=== PATIENT | male | born 1975 | race Caucasian/White ===

== ENCOUNTER 2017-07-07 15:57 | Emergency (ER) | payer OTHER ==
[~2017-07-07 15:57] MED LIST: ARIP1TAB5 PO; LISD70 PO; NAPR500 PO; SERT100 PO; TRAZ50TA4 PO; WELL150T PO
[2017-07-07 15:59] VITALS: BP 143/84; PULSE 80; RESP 16; TEMP 98.8; O2SAT 98
[2017-07-07] MEDS ORDERED: BUPR150CR PO (16:14)
[2017-07-07] MEDS ORDERED: TRAZ50TA12 PO (16:14)
[2017-07-07] MEDS ORDERED: ATOR10TA15 PO (16:14)
[2017-07-07] MEDS ORDERED: LISD70 PO (16:14)
--- NOTE | 2017-07-07 16:25 | PD ---
HPI Chief Complaint: Fall Time Seen by Provider: 16:05 Travel History International Travel<30 days: Yes Contact w/Intl Traveler<30days: Yes Name of Country Traveled to: [place] Traveled to known affect area: No History of Present Illness HPI Patient is a 42-year-old male who presents to emergency room with complaints of headache, neck pain and low back pain. Patient reports that prior to arrival to the emergency room, he was standing on a chair. Patient reports that he fell off the chair and landed on his back, reports that he does not think that he hit his head after the fall but does complain of pain to the back of his head. Reports that his neck is sore, reports that his low back is sore. Reports "I don't think anything is broken but I just wanted to make sure." He currently is not taking any anticoagulants. Patient was able to ambulate after fall. Reports that he did take a left over muscle relaxer he had at home as he does have history of discectomy in the past PFSH Past Medical History ADHD: Yes Anxiety: Yes Depression: Yes Past Surgical History Narrative Surgical History of a discectomy Social History Alcohol Use: Yes (socially) Tobacco Use: No Substance Use: No Allergies-Medications (Allergen,Severity, Reaction): Coded Allergies: erythromycin base (Verified Allergy, Severe, hives, 07/07/17) Reported Meds & Prescriptions Reported Meds & Active Scripts Active Reported Atorvastatin (Atorvastatin Calcium) 10 Mg Tab 10 Mg PO HS Trazodone (Trazodone HCl) 50 Mg Tab 50 Mg PO HS Vyvanse (Lisdexamfetamine Dimesylate) 70 Mg Cap 70 Mg PO DAILY Wellbutrin SR 12 HR (Bupropion HCl) 150 Mg Tab 150 Mg PO Q12HR Review of Systems General / Constitutional: No: Fever Eyes: No: Visual changes HENT: Positive: Headaches, Neck Pain Cardiovascular: No: Chest Pain or Discomfort Respiratory: No: Shortness of Breath Gastrointestinal: No: Abdominal Pain Genitourinary: No: Dysuria Musculoskeletal: Positive: Pain (low back pain) Skin: No Rash Neurologic: No: Weakness Psychiatric: No: Depression Endocrine: No: Polydipsia Hematologic/Lymphatic: No: Easy Bruising Physical Exam Narrative GENERAL: Mild distress SKIN: Focused skin assessment warm/dry. HEAD: Atraumatic. Normocephalic. EYES: Pupils equal and round. No scleral icterus. No injection or drainage. ENT: No nasal bleeding or discharge. Mucous membranes pink and moist. NECK: Trachea midline. No JVD. There is no midline tenderness, patient with right sided paraspinal tenderness CARDIOVASCULAR: Regular rate and rhythm. No murmur appreciated. RESPIRATORY: No accessory muscle use. Clear to auscultation. Breath sounds equal bilaterally. GASTROINTESTINAL: Abdomen soft, non-tender, nondistended. Hepatic and splenic margins not palpable. MUSCULOSKELETAL: No obvious deformities. No clubbing. No cyanosis. No edema. Patient with lumbar paraspinal tenderness, no saddle anesthesia, patient ambulating in the emergency with normal gait. NEUROLOGICAL: Awake and alert. No obvious cranial nerve deficits. Motor grossly within normal limits. Normal speech. CN 2- 12 grossly intact with no neurovascular deficits. PSYCHIATRIC: Appropriate mood and affect; insight and judgment normal. Data Data Last Documented VS Vital Signs Date Time Temp Pulse Resp B/P (MAP) Pulse Ox O2 Delivery O2 Flow Rate FiO2 07/07/17 15:59 98.8 80 16 143/84 (103) 98 Room Air Orders Orders Spine, Lumbar - Ltd (Ap & Lat) (07/07/17 16:11) Ct Brain W/O Iv Contrast(Rout) (07/07/17 16:11) Ct Cerv Spine W/O Contrast (07/07/17 16:11) MDM Medical Decision Making Medical Screen Exam Complete: Yes Emergency Medical Condition: Yes Medical Record Reviewed: Yes Interpretation(s) Vital Signs Date Time Temp Pulse Resp B/P (MAP) Pulse Ox O2 Delivery O2 Flow Rate FiO2 07/07/17 15:59 98.8 80 16 143/84 (103) 98 Room Air Differential Diagnosis Concussion, cervical spine sprain, lumbar strain Narrative Course During the course of the patients emergency department visit, the patients history, examination, and differential diagnosis were reviewed with the patient. The patient was placed on a shut off worker with oximetry and frequent blood pressure monitoring. Patient with acute on chronic low back pain, patient with no signs of cauda equina, patient is ambulating in the emergency room with normal gait, patient with no incontinence of bowel or bladder, no sciatic pain Radiology studies were reviewed and remarkable for [-] Diagnosis Primary Impression: Head injury Qualified Codes: S09.90XA - Unspecified injury of head, initial encounter Additional Impressions: Cervical sprain Qualified Codes: S13.9XXA - Sprain of joints and ligaments of unspecified parts of neck, initial encounter Low back pain Qualified Codes: M54.5 - Low back pain Patient Instructions: General Instructions Additional Instructions: Please provide patient with a copy of their lab work and studies at discharge* * Please follow up with your primary care doctor in 2-3 days Return to the ER if symptoms worsen or progress Return to the ER as needed Disposition: 01 DISCHARGE HOME Condition: Stable Aydee Redmond DO Jul 07, 2017 16:25
--- NOTE | 2017-07-07 16:40 | RADRPT ---
EXAM DATE/TIME: 07/07/2017 16:23 [facility] COMPARISON: No previous studies available for comparison. INDICATIONS : Low back pain due to fall. MEDICAL HISTORY : None. SURGICAL HISTORY : Discectomy, lumbar. ENCOUNTER: Initial ACUITY: 1 day PAIN SCORE: 10/10 LOCATION: Lumbar spine. FINDINGS: Two view examination was performed. There are five non-rib bearing vertebral bodies. The vertebral bodies are in normal alignment without evidence of subluxation or scoliosis. The disc spaces are jasmin ntained. The pedicles are intact. Bony mineralization is normal. No fracture is identified except for some irregularity of the superior anterior endplate of L5 unlikely to represent a compression fra cture. CONCLUSION: Unremarkable limited examination of the lumbar spine except for some irregularity of the superior ant erior endplate of L5 unlikely to represent a compression fracture. Jaswinder Garvin MD on July 07, 2017 at 16:37 Board Certified Radiologist. This report was verified electronically.
--- NOTE | 2017-07-07 16:50 | RADRPT ---
EXAM DATE/TIME: 07/07/2017 16:42 [facility] COMPARISON: No previous studies available for comparison. INDICATIONS : Patient fell from chair, hitting head. RADIATION DOSE: 36.84 CTDIvol (mGy) MEDICAL HISTORY : None SURGICAL HISTORY : None. ENCOUNTER: Initial ACUITY: 1 day PAIN SCALE: 8/10 LOCATION: cranial TECHNIQUE: Multiple contiguous axial images were obtained of the head. Using automated exposure control and adj ustment of the mA and/or kV according to patient size, radiation dose was kept as low as reasonably a chievable to obtain optimal diagnostic quality images. DICOM format image data is available electro nically for review and comparison. FINDINGS: CEREBRUM: The ventricles are normal for age. No evidence of midline shift, mass lesion, hemorrhage or acute in farction. No extra-axial fluid collections are seen. POSTERIOR FOSSA: The cerebellum and brainstem are intact. The 4th ventricle is midline. The cerebellopontine angle i s unremarkable. EXTRACRANIAL: The visualized portion of the orbits is intact. SKULL: The calvaria is intact. No evidence of skull fracture. CONCLUSION: Normal examination. Jaswinder Garvin MD on July 07, 2017 at 16:48 Board Certified Radiologist. This report was verified electronically.
--- NOTE | 2017-07-07 16:54 | PD ---
Physical Exam Date Seen by Provider: Jul 07, 2017 Time Seen by Provider: 16:52 Narrative The patient is a 42-year-old male who is initially I would've by the previous physician, Dr. Redmond. Please refer to the initial history, physical, diagnostic evaluation, and treatment modality plan. The patient was signed out with CT results pending. The patient apparently fell earlier today, x-ray was noted to have chronic changes, unlikely to have compression deformity. Patient was signed out with CT of the brain and cervical spine pending. Data Data Last Documented VS Vital Signs Date Time Temp Pulse Resp B/P (MAP) Pulse Ox O2 Delivery O2 Flow Rate FiO2 07/07/17 16:00 16 99 Room Air 07/07/17 15:59 98.8 80 143/84 (103) Orders Orders Spine, Lumbar - Ltd (Ap & Lat) (07/07/17 16:11) Ct Brain W/O Iv Contrast(Rout) (07/07/17 16:11) Ct Cerv Spine W/O Contrast (07/07/17 16:11) [facility] Medical Record Reviewed: Yes Supervised Visit with HELGA: No Interpretation(s) Last Impressions Lumbar Spine X-Ray 07/07/17 1611 Signed Impressions: Service Date/Time: Friday, July 07, 2017 16:23 - CONCLUSION: Unremarkable limited examination of the lumbar spine except for some irregularity of the superior anterior endplate of L5 unlikely to represent a compression fracture. Jaswinder Garvin MD CT of the brain reveals normal examination CT of the cervical spine reveals normal examination Differential Diagnosis Differential diagnosis includes fall, closed head injury, intracranial hemorrhage, skull fracture, cervical fracture, cervical strain, lumbar vertebral fracture, lumbar strain. Narrative Course She was initially evaluated by the previous physician, Dr. Redmond. Please refer to the initial history, physical, diagnostic evaluation, and treatment modality plan. The patient was signed out at [address] of the cervical spine and brain pending. CT of the brain and cervical spine revealed normal examination. X-ray lumbar spine reveals an irregularity of the superior endplate of L5 thought unlikely represent a compression fracture. The patient is stable for outpatient follow-up. He will be provided a copy of his CT results and lab results at discharge. Advised to follow-up with her primary physician. Diagnosis Primary Impression: Head injury Qualified Codes: S09.90XA - Unspecified injury of head, initial encounter Additional Impressions: Low back pain Qualified Codes: M54.5 - Low back pain Cervical sprain Qualified Codes: S13.9XXA - Sprain of joints and ligaments of unspecified parts of neck, initial encounter Patient Instructions: General Instructions Additional Instruction: Please provide patient with a copy of their lab work and studies at discharge* * Please follow up with your primary care doctor in 2-3 days Return to the ER if symptoms worsen or progress Return to the ER as needed Medications as directed. Med/Other Pt SpecificInfo: Prescription(s) given Scripts Orphenadrine ER 12 HR (Orphenadrine CR) 100 Mg Tab 100 MG PO Q12HR for Muscle Spasm for 10 Days, #20 TAB 0 Refills Prov: Edwin Tan MD 07/07/17 Ibuprofen (Ibuprofen) 600 Mg Tab 600 MG PO Q6H Y for Pain/Inflammation, #20 TAB 0 Refills Prov: Edwin Tan MD 07/07/17 Disposition: 01 DISCHARGE HOME Condition: Stable Edwin Tan MD Jul 07, 2017 16:54
--- NOTE | 2017-07-07 17:23 | RADRPT ---
EXAM DATE/TIME: 07/07/2017 16:42 [facility] COMPARISON: No previous studies available for comparison. INDICATIONS : Patient fell from chair, right side neck pain. RADIATION DOSE: 20.64 CTDIvol (mGy) MEDICAL HISTORY : None SURGICAL HISTORY : None. ENCOUNTER: Initial ACUITY: 1 day PAIN SCALE: 8/10 LOCATION: Right neck TECHNIQUE: Volumetric scanning of the cervical spine was performed. Multiplanar reconstructions in the sagittal, coronal and oblique axial planes were performed. Using automated exposure control and adjustment o f the mA and/or kV according to patient size, radiation dose was kept as low as reasonably achievable to obtain optimal diagnostic quality images. DICOM format image data is available electronically f or review and comparison. FINDINGS: VERTEBRAE: Normal vertebral body height. ALIGNMENT: No evidence of subluxation. C2-C3: The bony spinal canal is normal in size. No evidence of disc bulge or herniation. The neural forami na are bilaterally patent. C3-C4: The bony spinal canal is normal in size. No evidence of disc bulge or herniation. The neural forami na are bilaterally patent. C4-C5: The bony spinal canal is normal in size. No evidence of disc bulge or herniation. The neural forami na are bilaterally patent. C5-C6: The bony spinal canal is normal in size. No evidence of disc bulge or herniation. The neural forami na are bilaterally patent. C6-C7: The bony spinal canal is normal in size. No evidence of disc bulge or herniation. The neural forami na are bilaterally patent. C7-T1: The bony spinal canal is normal in size. No evidence of disc bulge or herniation. The neural forami na are bilaterally patent. CONCLUSION: Normal examination. Jaswinder Garvin MD on July 07, 2017 at 16:57 Board Certified Radiologist. This report was verified electronically.
[2017-07-07] MEDS ORDERED: IBUP-232 PO (17:38)
[2017-07-07] MEDS ORDERED: ORPH100T2 PO (17:38)
[2017-07-07 17:43] VITALS: BP 130/78; TEMP 97.8
== END 2017-07-07 17:45 | disposition home or self-care (01) ==
LOC: NEPD 15:57
DX: S09.90XA Unspecified injury of head, initial encounter (principal); S13.4XXA Sprain of ligaments of cervical spine, initial encounter; M54.5 Low back pain; W07.XXXA Fall from chair, initial encounter
CPT/HCPCS: 70450; 72100; 72125; 99284